=== PATIENT | female | born 1990 | race Two or more races ===

== ENCOUNTER → 2023-09-19 | Outpatient (CLI) | payer SELFPAY ==
[2023-09-22 21:07] LABS: Chlamydia By Nucleic Acid AMP Negative (Negative); Gonococcus By Nucleic Acid AMP Negative (Negative)
== END | disposition home or self-care (01) ==
PROVIDERS: Referring Provider Registered Nurse; Visit Provider Registered Nurse
DX: Z34.90 Encounter for supervision of normal pregnancy, unspecified, unspecified trimester (principal); Z3A.00 Weeks of gestation of pregnancy not specified
CPT/HCPCS: 87086; 87491; 87591

== ENCOUNTER → 2023-10-13 | Outpatient (CLI) | payer OTHER, SELFPAY ==
[2023-10-13 10:12] LABS: Absolute Lymphocyte Count 2.11 X10^3/uL (0.83-4.51); Absolute Neutrophil Count 3.8 X10^3/uL (2.0-7.7); Basophil# 0.04 X10^3/uL; Basophil% 0.6 % (0-1); Eosinophil# 0.07 X10^3/uL; Eosinophils% 1.1 % (0-5); Hematocrit 40.3 % (37-47); Hemoglobin 13.4 g/dL (12.0-15.0); Lymphocyte # 2.11 X10^3/ul (0.83-4.51); Lymphocyte % 32.7 % (19-41); Mean Corp Hgb Conc 33.3 g/dL (32-36); Mean Corpuscular Volume 90.2 fL (81-99); Mean Platelet Vol. 9.7 fl (6.2-12.0); Monocyte% 6.2 % (0-10); NRBC Flagged by Analyzer 0 % (0-5); Neutrophil # 3.81 X10^3/uL (2.7-7.7); Neutrophil % 58.9 % (47-70); Platelet Count 245 K/mm3 (150-450); RBC Distribution Width CV 11.9 % (11.6-14.6); Red Blood Count 4.47 M/mm3 (4.2-5.4); White Blood Count 6.5 K/mm3 (4.4-11.0)
[2023-10-13 12:06] LABS: HIV - WCH Non-Reactive (Nonreactive); Hepatitis B Surface Antigen Non-Reactive (Nonreactive); Hepatitis C Antibody Non-Reactive (Nonreactive); Rubella IgG Reactive (Nonreactive); Syphilis Antibodies Non-reactive
== END | disposition home or self-care (01) ==
LOC: LAB 09:28
PROVIDERS: Referring Provider Registered Nurse; Visit Provider Registered Nurse
DX: Z34.81 Encounter for supervision of other normal pregnancy, first trimester (principal); Z3A.00 Weeks of gestation of pregnancy not specified
CPT/HCPCS: 36415; 85025; 86703; 86762; 86780; 86803; 86850; 86900; 86901; 87340

== ENCOUNTER → 2023-12-15 | Outpatient (CLI) | payer OTHER, SELFPAY ==
--- NOTE | 2023-12-15 15:11 | US_ITS ---
STUDY: SECOND AND THIRD TRIMESTER OBSTETRICAL ULTRASOUND REASON FOR EXAM: Female, 33 years old anatomy with cervical length LMP: July 31, 2023. TECHNIQUE: Transabdominal and Transvaginal TECHNICAL QUALITY: Adequate. PRIOR ULTRASOUND: None. FINDINGS: There is a single intrauterine fetus. The fetus is in a cephalic presentation. There is demonstrated cardiac activity with a heart rate of 143 bpm. There is a normal amniotic fluid volume. The largest amniotic fluid pocket measures 4.6 cm x 3.5 cm. The amniotic fluid index (BEVERLY) is within normal limits. The placenta is anterior in location and is not low lying. There are Grade 1 placental changes. The cervix measures 5 cm in length. The adnexal regions are not visualized. BIOMETRY: BPD: 4.47 cm: 19 weeks, 4 days HC: 16.73 cm: 19 weeks, 3 days AC: 14.25 cm: 19 weeks, 4 days FL: 3.07 cm: 19 weeks, 4 days CI: 80% FL/BPD: 69% FL/HC: FL/AC: 22% HC/AC: 1.17 age by current US: 19 weeks, 3 days. KRISTA by current US: May 07, 2024. Estimated weight: 300 grams, +/- 45 grams, 44 %. Age by LMP: 19 weeks, 4 days. KRISTA by LMP: 2023. ANATOMY: Gender: Female Cranium: Normal lateral ventricles. Normal choroid plexus. Normal cerebellum. Normal cisterna magna. Normal face, nose and lips. Chest: Normal 4-chamber heart. Abdomen/Pelvis: Normal diaphragm. Normal stomach. Normal abdominal wall. Normal cord insertion. Normal 3 vessel cord. Normal kidneys. Normal bladder. Spine: Normal cervical spine. Normal thoracic spine. Normal lumbar spine. Normal sacrum. Extremities: Normal bilateral upper extremities. Normal bilateral lower extremities. IMPRESSION: Single live uterine gestation with mean gestational age of 19 weeks and 3 days. Electronically Signed: Zane Ball MD at 10:22 EDT , STUDY: FIRST TRIMESTER OBSTETRICAL ULTRASOUND REASON FOR EXAM: Female, 33 years old. Cervical length measurement. LMP: July 31, 2023. TECHNIQUE: Transvaginal TECHNICAL QUALITY: Adequate. PRIOR ULTRASOUND: None. FINDINGS: Cervical length measures 5 cm. US/OB Anatomy Scan IMPRESSION: Cervical length measures 5 cm. Electronically Signed: Zane Ball MD at 10:22 EDT ,
== END | disposition home or self-care (01) ==
PROVIDERS: Referring Provider Obstetrics & Gynecology; Visit Provider Obstetrics & Gynecology
DX: O09.90 Supervision of high risk pregnancy, unspecified, unspecified trimester (principal); Z3A.00 Weeks of gestation of pregnancy not specified
CPT/HCPCS: 76805; 76817

== ENCOUNTER → 2024-02-10 | Outpatient (CLI) | payer OTHER, SELFPAY ==
[2024-02-10 12:03] LABS: Absolute Lymphocyte Count 1.83 X10^3/uL (0.83-4.51); Absolute Neutrophil Count 6.5 X10^3/uL (2.0-7.7); Basophil# 0.04 X10^3/uL; Basophil% 0.4 % (0-1); Eosinophil# 0.07 X10^3/uL; Eosinophils% 0.8 % (0-5); Hematocrit 37.7 % (37-47); Hemoglobin 12.5 g/dL (12.0-15.0); Lymphocyte # 1.83 X10^3/ul (0.83-4.51); Lymphocyte % 20.3 % (19-41); Mean Corp Hgb Conc 33.2 g/dL (32-36); Mean Corpuscular Hgb 29.8 pg (27.0-32.0); Mean Platelet Vol. 9.9 fl (6.2-12.0); Monocyte# 0.53 X10^3/uL; Monocyte% 5.9 % (0-10); NRBC Flagged by Analyzer 0 % (0-5); Neutrophil # 6.48 X10^3/uL (2.7-7.7); Platelet Count 221 K/mm3 (150-450); RBC Distribution Width CV 12.1 % (11.6-14.6); RBC Distribution Width SD 39.2 fl (35.1-43.9); Red Blood Count 4.19 M/mm3 (4.2-5.4)
[2024-02-10 12:25] LABS: Glucose Challenge Gest 1H 50g 86 mg/dL (70-140)
[2024-02-10 12:55] LABS: HIV - WCH Non-Reactive (Nonreactive); Syphilis Antibodies Non-reactive
== END | disposition home or self-care (01) ==
PROVIDERS: Referring Provider Nurse Practitioner Women's Health; Visit Provider Nurse Practitioner Women's Health
DX: Z34.90 Encounter for supervision of normal pregnancy, unspecified, unspecified trimester (principal); Z3A.23 23 weeks gestation of pregnancy; Z13.1 Encounter for screening for diabetes mellitus
CPT/HCPCS: 36415; 82950; 85025; 86703; 86780

== ENCOUNTER → 2024-04-05 | Outpatient (CLI) | payer SELFPAY, OTHER ==
--- NOTE | 2024-04-05 16:01 | US_ITS ---
STUDY: SECOND AND THIRD TRIMESTER OBSTETRICAL ULTRASOUND - LIMITED REASON FOR EXAM: Female, 33 years old 36 week growth LMP: July 31, 2023. PRIOR ULTRASOUND: Comparison is made with prior study December 15, 2023. TECHNIQUE: Transabdominal TECHNICAL QUALITY: Adequate. FINDINGS: There is a single intrauterine fetus. The fetus is in a cephalic presentation. There is demonstrated cardiac activity with a heart rate of 127 bpm. There is a normal amniotic fluid volume. The largest amniotic fluid pocket measures 3.5 cm. The amniotic fluid index (BEVERLY) is 10.6 cm. The placenta is anterior in location and is not low lying. There are Grade 1 placental changes. BIOMETRY: BPD: 8.9 cm: 36 weeks, 1 days: 70% HC: 32.13 cm: 36 weeks, 2 days: 34% AC: 33.02 cm: 36 weeks, 6 days: 89% FL: 7.34 cm: 37 weeks, 4 days: 89% Age by LMP: 35 weeks, 4 days. KRISTA by LMP: May 06, 2024. age by prior US: 35 weeks, 3 days. KRISTA by prior US: May 07, 2024. age by current US: 36 weeks, 3 days. KRISTA by current US: April 30, 2024. Estimated weight: 3112 grams, +/- 467 grams, 86 percentile. US/OB Limited With Biometrics IMPRESSION: Single live uterine gestation with mean gestational age of 35 weeks and 3 days. The measurements obtained today fall within the normal expected range. Electronically Signed: Zane Ball MD at 15:18 EDT ,
== END | disposition home or self-care (01) ==
PROVIDERS: Referring Provider Advanced Practice Midwife; Visit Provider Advanced Practice Midwife
DX: O09.523 Supervision of elderly multigravida, third trimester (principal); Z3A.36 36 weeks gestation of pregnancy
CPT/HCPCS: 76816

== ENCOUNTER → 2024-04-09 | Outpatient (CLI) | payer OTHER, SELFPAY | END | disposition home or self-care (01) | LOC: LABSPEC 10:07 | PROVIDERS: Referring Provider Obstetrics & Gynecology; Visit Provider Obstetrics & Gynecology | DX: O09.92 Supervision of high risk pregnancy, unspecified, second trimester (principal); Z3A.00 Weeks of gestation of pregnancy not specified | CPT/HCPCS: 87077; 87081; 87186 ==

== ENCOUNTER 2024-04-26 16:15 | Inpatient (IN) | payer SELFPAY ==
[2024-04-26] VITALS (54 sets, daily range): BP systolic 104–138; BP diastolic 55–82; PULSE 50–89; RESP 14–16; TEMP 36.2–36.9; O2SAT 92–100; BMI 28.0
[2024-04-26] MEDS: Lactated Ringers 1,000 ML 999 ML IV (16:15)
--- NOTE | 2024-04-26 16:20 | HP.PCM.OB_ITS ---
HPI - General General Date of Admission: 04/26/24 Date of Service: 04/26/24 HPI Narrative GHAZALA CASTRO, is a 33 F 38.4 weeks who presents to unit in active labor. plan for admission. Maternal Data Information KRISTA Calculator Estimated Delivery Date Method Current WG Current Estimate 05/06/24 LMP (Certain) 38w 4d Final KRISTA: 05/06/24 Final KRISTA Source: US >20 weeks Gestational age: 38.4 weeks PFSH PFSH Medical History Seasonal allergies Chemical Home Medications ?Medication ?Instructions ?Recorded ?Last Taken ?Type vitamins no.163-iron 1 tab PO DAILY 09/12/23 Unknown History bis-gly 20 mg-folate no.10 1 mg tablet (PNV Tabs 20-1) magnesium 2 tab PO DAILY 04/26/24 Unknown History Allergy/AdvReac Type Severity Reaction Status Date / Time No Known Allergies Allergy Verified 04/26/24 16:16 Surgical History [place] teeth extracted History of tonsillectomy No pertinent past surgical history Social History adopted: No household members: spouse and children number of children: 2 current occupational status: unemployed current occupation: [employer] current occupational exposures/hazards: No pets and animals: No history of recent travel: Yes ([facility]) out of state: No out of country: Yes sexually active: Yes Smoking Status: Never smoker alcohol intake: current details: not while substance use type: does not use well-balanced diet: daily or most days caffeine: Yes Type: coffee Number of servings: 1 eating out: rarely or never during the past year weight has: decreased > 10 lbs what type of physical activity do you participate in: walking and weight training frequency: daily duration: 45-60 minutes/day mau/taoism: Anabaptism seatbelt use: always do you feel safe at home: Yes additional social history: [employer] Senior [employer] History 5 Elective abortions Hx Para 2 Spontaneous abortions 2 Hx # Term Pregnancies Ectopic pregnancies Hx # Pregnancies Multiple births # of living children 2 Past Pregnancies Del. Date Name GA/Weeks Outcome Route Bth Weight Gen Labor Lgth Anesthesia Del Locatn Provider FOB 08/15/18 Oscar 40 live - full term Male jitendra al ALEX Kebede Donora 02/22/22 Josue 39 live - full term Male jitendra calvo [facility] Donora Delivery Date: 08/15/18 Last Updated by: Demetrice Amaro IOL-distance to hospital. Baby had decels in labor and swallowed amniotic fluid during delivery, NICU for a few days. Pt on O2 during labor. Delivery Date: 02/22/22 Last Updated by: Demetrice Amaro IOL - due to size and IOL is more prevalent in [facility]. Baby had decel's in labor Visit Details Expected Delivery Route/Plan Labor Preferences- CB/BF classes: no labor support person: Neil labor intervention preferences: [] pain management options preferred: epidural cut cord/dad catch: yes : yes PP control planned: [] discussed possible routes of delivery and associated risks: [] special requests: [] Plans Covid status: [] Flu vaccine: [] Tdap vaccine: Rhogam: [] LARC form signed: [] movement and labor precautions reviewed. Problem list reviewed and updated with the most current plan of care details and appropriate orders placed. Relevant counseling for the gestational age provided. Continue routine care and follow up unless otherwise noted in visit notes/problem list details OB Flowsheet Initial Weight: 158 lb Date -?-?-?-?-?-?-?-?-?-?-?-?- EGA Weight BP Urine Prot -?-?-?-?-?-?-?-?-?-?-?-?- Glucose FHR FuHt Pres Dilation -?-?-?-?-?-?-?-?-?-?-?-?- Effaced St Visit Note 09/19/23 -?-?-?-?-?-?-?-?-?-?-?-?- 7w 1d 158 lb 5 oz (+5 oz) 116/72 -?-?-?-?-?-?-?-?-?-?-?-?- 131 -?-?-?-?-?-?-?-?-?-?-?-?- LC- CRL con with LMP. desires nipt. 10/22/23 -?-?-?-?-?-?-?-?-?-?-?-?- 11w 6d 158 lb 8 oz (+8 oz) 124/68 Negative -?-?-?-?-?-?-?-?-?-?-?-?- Negative 181 -?-?-?-?-?-?-?-?-?-?-?-?- JV- no cramping or complaints. normal low risk NIPT (first girl!) planning to go back to [facility] when baby is 3 weeks old. wants induced between 39 and 40 weeks. 11/18/23 -?-?-?-?-?-?-?-?-?-?-?-?- 15w 5d 159 lb (+16 oz) 96/62 Negative -?-?-?-?-?-?-?-?-?-?-?-?- Negative 160 -?-?-?-?-?-?-?-?-?-?-?-?- KW-no vb/crampin g. US for 12/14. 12/15/23 -?-?-?-?-?-?-?-?-?-?-?-?- 19w 4d 169 lb (+11 lb) 112/66 Negative -?-?-?-?-?-?-?-?-?-?-?-?- Negative 145 -?-?-?-?-?-?-?-?-?-?-?-?- kw- no vb/crampi ng. possible flutters. US today 01/13/24 -?-?-?-?-?-?-?-?-?-?-?-?- 23w 5d 178 lb (+20 lb) 102/65 Negative -?-?-?-?-?-?-?-?-?-?-?-?- Negative 151 23 -?-?-?-?-?-?-?-?-?-?-?-?- MH-No VB, LOF. G ood FM. Denies concerns 02/10/24 -?-?-?-?-?-?-?-?-?-?-?-?- 27w 5d 184 lb (+26 lb) 106/70 -?-?-?-?-?-?-?-?-?-?-?-?- 140 28 -?-?-?-?-?-?-?-?-?-?-?-?- SM- no vb lof go od fm no reuglar ctx 02/27/24 -?-?-?-?-?-?-?-?-?-?-?-?- 30w 1d 189 lb (+31 lb) 112/72 Negative -?-?-?-?-?-?-?-?-?-?-?-?- Negative 140 30 -?-?-?-?-?-?-?-?-?-?-?-?- SM- no vb lof go od fm no regular ctx 03/08/24 -?-?-?-?-?-?-?-?-?-?-?-?- 31w 4d 191 lb (+33 lb) 108/71 Negative -?-?-?-?-?-?-?-?-?-?-?-?- Negative 145 30 Transverse -?-?-?-?-?-?-?-?-?-?-?-?- JV- discussed fe ars of tearing and having to fly to [facility] 3 weeks after delivery. planning 39 week IOL, epidural, mineral oil, warm compresses, etc. tdap today. flu shot next visit possibly. 03/22/24 -?-?-?-?-?-?-?-?-?-?-?-?- 33w 4d 194 lb (+36 lb) 115/72 Negative -?-?-?-?-?-?-?-?-?-?-?-?- Negative 145 32 -?-?-?-?-?-?-?-?-?-?-?-?- KW- no vb/crampi ng. good fm. 36 week US ordered. recommended magnesium for leg cramps at night. planning 39 week IOL 04/09/24 -?-?-?-?-?-?-?-?-?-?-?-?- 36w 1d 197 lb 8 oz (+39 lb 8 oz) 132/80 Negative -?-?-?-?-?-?-?-?-?-?-?-?- Negative 145 36 -?-?-?-?-?-?-?-?-?-?-?-?- KW- no vb/lof/ct x. good fm. GBS today. magnesium helping with cramping and 36 week us reviewed. 04/14/24 -?-?-?-?-?-?-?-?-?-?-?-?- 36w 6d 199 lb 8 oz (+41 lb 8 oz) 109/71 Negative -?-?-?-?-?-?-?-?--?-?-?-?- Negative 140 36 Cephalic -?-?-?-?-?-?-?-?-?-?-?-?- JV- planning IOL on 04/30/24. pt prefers doc for IOL. no lof, vaginal bleeding, or dec fm. 04/22/24 -?-?-?-?-?-?-?-?-?-?-?-?- 38w 0d 201 lb 4 oz (+43 lb 4 oz) 111/73 Negative -?-?-?-?-?-?-?-?-?-?-?-?- Negative 145 38 Cephalic 1 -?-?-?-?-?-?-?-?-?-?-?-?- 50 -2 JV- no lof , vaginal bleeding, or dec fm. IOL set up and plan is for rm/pit NST FHR Rate Baby A Baseline: 130 Variability:: Moderate Accelerations:: 15 x 15 Decelerations:: None NST Reactive:: Yes FHR Category:: Category I Uterine Activity:: 3-4 minutes ROS Constitutional Constitutional: Denies change in weight, fatigue, fever(s), headache(s), poor appetite or weakness Eyes Eyes: Denies blurry vision, change in vision, floaters, seeing flashes or spots in vision ENT HEENT: Denies dizziness, headache(s), loss taste/smell or sore throat Cardiovascular Cardiovascular: Denies chest pain, dizziness, dyspnea, irregular heart rhythm, lightheadedness, palpitations or rapid heart rate Respiratory/Chest Respiratory/Chest: Denies change in mental status, chest tightness, cough, dyspnea or breast pain Gastrointestinal Gastrointestinal: Denies anorexia, chewing difficulty, constipation, diarrhea or weight changes Genitourinary Genitourinary: Denies difficulty urinating, dysuria, flank pain, genital pain, urinary frequency or urinary urgency Musculoskeletal Musculoskeletal: Denies back pain, difficulty walking, extremity pain, joint pain, muscle cramps or muscle weakness Integumentary Integumentary: Denies lesions or unusual bruising Neurologic Neurologic: Denies abnormal movements, abnormal speech, dizziness, numbness, seizure-like activity, syncope or weakness Psychiatric Psychiatric: Denies behavioral changes, change in appetite, confusion, depression, homicidal ideation, suicidal ideation or suicidal thoughts Endocrine Endocrinology: Denies excessive sweating, polydipsia or polyuria Hematologic/Lymphatic Hematologic/Lymphatic: Denies anemia Allergic/Immunologic Allergic/Immunologic: Denies itchy eyes, lip swelling, throat swelling, tongue swelling or wheezing Vital Signs Vital Signs Vital Signs: 04/26/24 16:05 04/26/24 16:05 04/26/24 16:05 Temperature Temperature Source Temporal Pulse Rate 64 Respiratory Rate Blood Pressure 136/72 H BP Systolic 136 BP Diastolic 72 04/26/24 16:05 04/26/24 16:05 04/26/24 16:05 Temperature 98.5 F Temperature Source Temporal Pulse Rate Respiratory Rate 16 Blood Pressure BP Systolic BP Diastolic 04/26/24 16:05 04/26/24 16:05 Temperature 98.5 F Temperature Source Pulse Rate Respiratory Rate 16 Blood Pressure BP Systolic BP Diastolic Weight Weight: 201 lb 4 oz Body Mass Index (BMI) 28.0 Physical Exam Const alert, oriented x3 and no apparent distress General Appearance: cooperative Orientation / Consciousness: awake HEENT normocephalic Neck full ROM Lymph Lymphatic: no lymphadenopathy noted Chest inspection of chest normal Resp normal respiratory effort and normal air movement Effort and Inspection: able to speak in complete sentences and symmetric chest movement GI soft to palpation and non-tender Inspection: gravid Palpation: soft; Negative for tender external exam normal Manual OB Exam: dilated 5, effaced 80 and station -2 Back/Spine normal to inspection Extremity normal to inspection and full ROM Skin no rashes or lesions noted Psych mental status grossly normal Appearance: grossly normal Speech: normal speech Labs Labs Labs: Blood Type A POSITIVE Antibody Screen NEGATIVE Hct 37.7 % (37-47) Hgb 12.5 g/dL (12.0-15.0) Obstetrics Ultrasound Syphilis Total Ab Non-reactive Rubella IgG Antibody Reactive (Nonreactive) Hep Bs Antigen Non-Reactive (Nonreactive) Hepatitis C Antibody Non-Reactive (Nonreactive) Chlamydia DNA (NUVIA) Negative (Negative) N.gonorrhoeae DNA (NUVIA) Negative (Negative) HIV 1&2 Antibody Non-Reactive (Nonreactive) Glucose 1 Hr 50 gm 86 mg/dL (70-140) Assessment & Plan (1) Positive GBS test: COMMENT: treat in labor (2) AMA (advanced maternal age) multigravida 35+: COMMENT: growth US at 36 weeks (86%), deliver 39 weeks - prefers doc for delivery please. iol set up for 04/30 with SM (3) Supervision of high-risk : QUALIFIERS: Trimester: second trimester Qualified Code(s): O09.92 - Supervision of high risk , unspecified, second trimester COMMENT: [id number], KRISTA 05/06/24, girl Lilli PC Oscar, Josue Donora([facility]) (4) : QUALIFIERS: Weeks of gestation: 36 weeks Qualified Code(s): Z3A.36 - 36 weeks gestation of COMMENT: normal anatomy, NIPT low risk, declined AFP & carrier testing Charges/Coding Multi Select Codes Urinary/Genital Urinary/Genital CPT Codes: No Charge
[2024-04-26] MEDS: Penicillin G Pot 5,000,000 UNITS in 0.9% Normal Saline (100mL MB+) 100 ML 150 UNITS IV (16:38)
[2024-04-26 16:55] LABS: Absolute Lymphocyte Count 2.25 X10^3/uL (0.83-4.51); Basophil# 0.06 X10^3/uL; Basophil% 0.6 % (0-1); Eosinophil# 0.08 X10^3/uL; Eosinophils% 0.8 % (0-5); Hematocrit 37.8 % (37-47); Lymphocyte # 2.25 X10^3/ul (0.83-4.51); Lymphocyte % 22.2 % (19-41); Mean Corp Hgb Conc 34.4 g/dL (32-36); Mean Corpuscular Hgb 30.2 pg (27.0-32.0); Mean Corpuscular Volume 87.9 fL (81-99); Mean Platelet Vol. 10.7 fl (6.2-12.0); Monocyte# 0.64 X10^3/uL; Monocyte% 6.3 % (0-10); NRBC Flagged by Analyzer 0 % (0-5); Neutrophil # 7.02 X10^3/uL (2.7-7.7); Neutrophil % 69.2 % (47-70); Platelet Count 241 K/mm3 (150-450); RBC Distribution Width SD 38.4 fl (35.1-43.9); White Blood Count 10.1 K/mm3 (4.4-11.0)
[2024-04-26] MEDS: LACTATED RINGERS 500 ML 999 ML IV (17:15)
[2024-04-26 17:34] LABS: Syphilis Antibodies Non-reactive
[2024-04-26] MEDS: fentaNYL-bupivacaine (epidural) 100 ML BAG EPIDURAL (17:35)
--- NOTE | 2024-04-26 18:51 | PCM.PN.BLA ---
Progress Note comfortable with epidural current tracing: FHT: 140 Moderate variability reactive no decelerations category I tracing [place]: 3-4 minutes Contractions Membranes:intact SVE:8/-1 A/P: Continue with position changes Epidural per anesthesia PCN for GBS prophylaxis treated at [address] Malone aware of above assessment and agrees with plan of care Assessment & Plan Assessment/Plan (1) Active labor: (2) Positive GBS test: (3) AMA (advanced maternal age) multigravida 35+: (4) Supervision of high-risk : QUALIFIERS: Trimester: second trimester Qualified Code(s): O09.92 - Supervision of high risk , unspecified, second trimester (5) : QUALIFIERS: Weeks of gestation: 36 weeks Qualified Code(s): Z3A.36 - 36 weeks gestation of Multi Select Codes Urinary/Genital Urinary/Genital CPT Codes: No Charge
[2024-04-26] MEDS: LACTATED RINGERS 500 ML 50 ML IV (19:53)
[2024-04-26] MEDS: Oxytocin 15 Units/NS 250ml 15 UNITS/250 ML IV.SOLN 83 UNITS IV (20:20)
[2024-04-26] MEDS: Oxytocin 10 UNITS/ML Vial IM (20:22)
--- NOTE | 2024-04-26 21:07 | OB.VAGDELI_ITS ---
Assessment & Plan (1) Vaginal delivery: COMMENT: KW IAL 38.4 Girl Lilli (2) Active labor: (3) Positive GBS test: COMMENT: treat in labor (4) AMA (advanced maternal age) multigravida 35+: COMMENT: growth US at 36 weeks (86%), deliver 39 weeks - prefers doc for delivery please. iol set up for 04/30 with (5) Supervision of high-risk : QUALIFIERS: Trimester: second trimester Qualified Code(s): O09.92 - Supervision of high risk , unspecified, second trimester COMMENT: [id number], KRISTA 05/06/24, girl Lilli PC Oscar, Josue Corbin([facility]) (6) : QUALIFIERS: Weeks of gestation: 36 weeks Qualified Code(s): Z3A.36 - 36 weeks gestation of COMMENT: normal anatomy, NIPT low risk, declined AFP & carrier testing Maternal Data Information KRISTA Calculator Estimated Delivery Date Method Current WG Current Estimate 05/06/24 LMP (Certain) 38w 4d Final KRISTA: 04/26/24 Final KRISTA Source: US >20 weeks Gestational age: 38.4 Vaginal Delivery Maternal Presentation Maternal Presentation: Active Labor Maternal Presentation: Progressed well to 10cm dilated and made steady progress with effective maternal pushing. Delivered the head in ERIC presentation. The head was delivered atraumatically and no nuchal cord was identified. The anterior and posterior shoulders delivered without complication followed by the rest of the and the was placed on the maternal abdomen. Delayed cord clamping was employed for approximately 3 minutes. Cord was clamped and cut and gentle traction was applied to the cord and the placenta delivered spontaneously. Immediately following, it was noted to be intact with a 3 vessel cord. The perineum and vagina were inspected and noted to have a second degree laceration which was repaired with 3-0 Vicryl in the usual fashion. Uterine bleeding stable at this time. EBL was 150cc. Patient and tolerated delivery well. Apgars 8/8. Dr Hanson notified of vaginal delivery and orders reviewed. Physician agrees with current plan of care. Vaginal Delivery Information Procedure Performed: Spontaneous Vaginal Delivery Surgeon/Practitioner: Galina Arana Date of Procedure: 04/26/24 Pre-Procedure Diagnosis: see problem list Post-Procedure Diagnosis: see problem list Type of anesthesia: Epidural Estimated Blood Loss: 150 Time of Delivery: 20:17 Findings Presentation: Vertex Amniotic Membrane Rupture Type: Spontaneous Amniotic Fluid Description: Clear Placental Delivery Description: Spontaneous Placenta Disposition: [facility] Specimen collected: No Cord Vessel Description: 3 Vessels Cord Entanglement: None A Gender: Female (1 minute): 8 (5 minute): 8 Delayed Cord Clamping: Yes Director Mba registered mail clerk: No Post Vaginal Deli Medications given after delivery: IV Pitocin and IM Pitocin Episiotomy Description: None Laceration: 2nd degree Complication Complications: No Multi Select Codes Urinary/Genital Urinary/Genital CPT Codes: 27380 Vaginal Delivery [facility]
[2024-04-27] VITALS (7 sets, daily range): BP systolic 104–126; BP diastolic 57–77; PULSE 50–96; RESP 16; TEMP 36.3–36.7; O2SAT 96–97
--- NOTE | 2024-04-27 07:48 | PCM.PN.OB ---
Subjective Subjective Patient doing well without complaints. Tolerating PO. Ambulating and voiding without difficulty. Feeding well. Denies chest pain, shortness of breath, calf pain/swelling, fevers, chills, lightheadedness. Objective Data Objective Data Vital Signs: Vital Signs Temp Pulse Resp BP Pulse Ox O2 Del Method 97.8 F 50 L 16 122/64 H 96 Room Air 04/27/24 04:18 04/27/24 04:18 04/27/24 04:18 04/27/24 04:18 04/27/24 04:18 04/27/24 04:18 Oxygen Delivery Method Room Air Weight: 201 lb 4 oz Body Mass Index (BMI) 28.0 Intake & Output: Intake and Output for Last 24 Hours 04/25/24 04/26/24 04/27/24 23:59 23:59 23:59 Intake Total 1877.5 / 1877.5 Output Total 1900 / 1900 Balance -22.5 / -22.5 Lab / Micro Data 04/26/24 16:15 Labs: Laboratory Results - last 24 hr 04/26/24 16:15: WBC 10.1, RBC 4.30, Hgb 13.0, Hct 37.8, MCV 87.9, MCH 30.2, MCHC 34.4, RDW Std Deviation 38.4, RDW Coeff of Min 12.0, Plt Count 241, MPV 10.7, Immature Gran % (Auto) 0.900, Neut % (Auto) 69.2, Lymph % (Auto) 22.2, [place] % (Auto) 6.3, Eos % (Auto) 0.8, Baso % (Auto) 0.6, Absolute Neuts (auto) 7.0, Absolute Lymphs (auto) 2.25, Nucleated RBC % 0, Syphilis Total Ab Non-reactive, Blood Type A POSITIVE, Antibody Screen NEGATIVE Physical Exam Const alert and oriented x3 HEENT normocephalic Eyes PERRL Neck full ROM Resp normal respiratory effort GI soft to palpation GI Narrative: FF below U Assessment & Plan (1) Vaginal delivery: COMMENT: KW IAL 38.4 Girl Lilli PLAN: Plan s/p PPD # 1 1. routine post delivery care 2. breast feeding- support given 3. rh positive 4. rubella immune
[2024-04-27] MEDS: Senna/Docusate Sodium 1 Tablet PO (08:10)
[2024-04-28 02:00] VITALS: BP 117/58; PULSE 57; RESP 18; TEMP 37.1; O2SAT 97
[2024-04-28 07:43] VITALS: BP 104/74; PULSE 80; RESP 16; TEMP 36.7; O2SAT 98
--- NOTE | 2024-04-28 07:49 | PCM.PN.OB ---
Subjective Subjective Patient doing well without complaints. Tolerating PO. Ambulating and voiding without difficulty. Feeding well. Denies chest pain, shortness of breath, calf pain/swelling, fevers, chills, lightheadedness. Objective Data Objective Data Vital Signs: Vital Signs Temp Pulse Resp BP Pulse Ox O2 Del Method 98.1 F 80 16 104/74 98 Room Air 04/28/24 07:43 04/28/24 07:43 04/28/24 07:43 04/28/24 07:43 04/28/24 07:43 04/28/24 07:43 Oxygen Delivery Method Room Air Weight: 201 lb 4 oz Body Mass Index (BMI) 28.0 Intake & Output: Intake and Output for Last 24 Hours 04/26/24 04/27/24 04/28/24 23:59 23:59 23:59 Intake Total 1877.5 / 1877.5 Output Total 1900 / 1900 Balance -22.5 / -22.5 Lab / Micro Data 04/26/24 16:15 Physical Exam Const alert and oriented x3 HEENT normocephalic Eyes PERRL Neck full ROM Resp normal respiratory effort GI soft to palpation GI Narrative: FF below U Assessment & Plan (1) Vaginal delivery: COMMENT: KW IAL 38.4 Girl Lilli PLAN: Plan s/p PPD # 2 1. routine post delivery care 2. breast feeding- support given 3. rh positive 4. rubella immune 5. stool softener enc due to 2 degree lac 6. home today
[2024-04-28] MEDS: FLU VACC 2024-25(6MOS UP)/PF 45 MCG/0.5 ML SYRINGE IM (08:44)
[2024-04-28] MEDS: Senna/Docusate Sodium 1 Tablet PO (08:44)
== END 2024-04-28 11:00 | disposition home or self-care (01) | DRG 807 ==
PROVIDERS: Admitting Provider Advanced Practice Midwife; Referring Provider Advanced Practice Midwife; Visit Provider Advanced Practice Midwife
DX: O99.824 Streptococcus B carrier state complicating childbirth (principal); Z37.0 Single live birth; O70.1 Second degree perineal laceration during delivery; Z3A.38 38 weeks gestation of pregnancy; Z87.59 Personal history of other complications of pregnancy, childbirth and the puerperium
CPT/HCPCS: 59025; 59050; 85025; 86780; 86850; 86900; 86901; 90656; 99221; J7120; G0378